=== PATIENT | male | born 1995 | race African-American/Black ===

== ENCOUNTER 2016-10-07 02:14 | Emergency (ER) | payer BC, MEDICAID ==
[2016-10-07 02:37] VITALS: BP 139/81
== END 2016-10-07 06:56 | disposition left against medical advice (07) ==
LOC: ED 02:14
DX: S51.811A Laceration without foreign body of right forearm, initial encounter (principal); X58.XXXA Exposure to other specified factors, initial encounter; Y93.9 Activity, unspecified; Y92.89 Other specified places as the place of occurrence of the external cause; Z53.21 Procedure and treatment not carried out due to patient leaving prior to being seen by health care provider

== ENCOUNTER 2016-10-15 13:33 | Emergency (ER) | payer BC, MEDICAID ==
[2016-10-15 13:41] VITALS: BP 140/69
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
== END 2016-10-15 15:28 | disposition home or self-care (01) ==
LOC: ED 13:33
DX: S51.811A Laceration without foreign body of right forearm, initial encounter (principal); W45.8XXA Other foreign body or object entering through skin, initial encounter; Y93.9 Activity, unspecified; Y92.9 Unspecified place or not applicable
CPT/HCPCS: 99281

== ENCOUNTER 2017-03-20 11:47 | Emergency (ER) | payer BC, MEDICAID ==
[2017-03-20 12:11] VITALS: BP 154/82
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
== END 2017-03-20 12:35 | disposition home or self-care (01) ==
LOC: ED 11:47
DX: K04.7 Periapical abscess without sinus (principal); I10 Essential (primary) hypertension; G47.30 Sleep apnea, unspecified; F31.9 Bipolar disorder, unspecified; F12.90 Cannabis use, unspecified, uncomplicated; F17.210 Nicotine dependence, cigarettes, uncomplicated
CPT/HCPCS: 99281